=== PATIENT | female | born 1960 | race Asian ===

== ENCOUNTER 2018-11-05 07:47 | Day surgery (SDC) | payer OTHER | END 2018-11-05 09:49 | disposition home or self-care (01) | LOC: OR 07:47 | PROC: 3E0R33Z Introduction of Anti-inflammatory into Spinal Canal, Percutaneous Approach (ICD-10-PCS; principal; 2018-11-05) | PROC: B01BYZZ Fluoroscopy of Spinal Cord using Other Contrast (ICD-10-PCS; 2018-11-05) | DX: M51.16 Intervertebral disc disorders with radiculopathy, lumbar region (principal) | CPT/HCPCS: J1020; J2704 ==

== ENCOUNTER 2018-12-30 07:25 | Day surgery (SDC) | payer OTHER ==
[~2018-12-30] VITALS: Ht 30.5 cm; Wt 0.5 kg
[2018-12-30 08:42] LABS: PLATELET COUNT 281 K/uL (152-353)
[2018-12-30 09:03] LABS: POTASSIUM 3.8 mmol/L (3.6-5.2)
== END 2018-12-30 10:20 | disposition home or self-care (01) ==
LOC: OR 07:25
PROVIDERS: Pain Medicine Interventional Pain Medicine
PROC: 3E0R33Z Introduction of Anti-inflammatory into Spinal Canal, Percutaneous Approach (ICD-10-PCS; principal; 2018-12-30)
PROC: B01BYZZ Fluoroscopy of Spinal Cord using Other Contrast (ICD-10-PCS; 2018-12-30)
DX: M50.123 Cervical disc disorder at C6-C7 level with radiculopathy (principal)
CPT/HCPCS: 80053; 85027; J1020; J2001; J2250; J2405; J2704

== ENCOUNTER 2019-02-03 07:52 | Day surgery (SDC) | payer OTHER ==
[~2019-02-03] VITALS: Ht 30.5 cm; Wt 0.5 kg
[2019-02-03 08:46] LABS: PLATELET COUNT 271 K/uL (152-353)
== END 2019-02-03 10:45 | disposition home or self-care (01) ==
LOC: OR 07:52
PROVIDERS: Pain Medicine Interventional Pain Medicine
PROC: 3E0R33Z Introduction of Anti-inflammatory into Spinal Canal, Percutaneous Approach (ICD-10-PCS; principal; 2019-02-03)
PROC: B01BYZZ Fluoroscopy of Spinal Cord using Other Contrast (ICD-10-PCS; 2019-02-03)
DX: M50.123 Cervical disc disorder at C6-C7 level with radiculopathy (principal)
CPT/HCPCS: 80053; 85027; J1020; J2001; J2250; J2405; J2704

== ENCOUNTER 2019-04-28 07:30 | Day surgery (SDC) | payer OTHER ==
[2019-04-28 09:29] LABS: POTASSIUM 4.1 mmol/L (3.6-5.2)
[2019-04-28 09:48] LABS: PLATELET COUNT 295 K/uL (152-353)
== END 2019-04-28 11:23 | disposition home or self-care (01) ==
LOC: OR 07:30
PROVIDERS: Pain Medicine Interventional Pain Medicine
PROC: 3E0R33Z Introduction of Anti-inflammatory into Spinal Canal, Percutaneous Approach (ICD-10-PCS; principal; 2019-04-28)
PROC: B01BYZZ Fluoroscopy of Spinal Cord using Other Contrast (ICD-10-PCS; 2019-04-28)
DX: M51.16 Intervertebral disc disorders with radiculopathy, lumbar region (principal)
CPT/HCPCS: 80053; 85027; J1020; J2001; J2250; J2704